=== PATIENT | female | born 1950 | race Two or more races ===

== ENCOUNTER 2019-10-24 15:04 | Emergency (ER) | payer MEDICARE, OTHER ==
[~2019-10-24] VITALS: Ht 167.6 cm; Wt 104.3 kg
--- NOTE | 2019-10-24 15:19 | NUR ---
DR HART AT BEDSIDE FOR EVAL.
--- NOTE | 2019-10-24 15:23 | NUR ---
[employer] AT BED SIDE, OFFICER MANJU LINDQUIST #[id number]
[2019-10-24] MEDS ORDERED: HYDROCODONE/APAP 5/325MG 1 EACH TABLET ONE (15:24)
[2019-10-24] MEDS ORDERED: HYDROCODONE/APAP 5/325MG 1 EACH TABLET PO ONE (15:30)
[2019-10-24 16:24] VITALS: BP 162/101
--- NOTE | 2019-10-24 16:24 | NUR ---
Patient discharged to home in stable condition. Written and verbal after care instructions given. Patient verbalizes understanding of instruction.
== END 2019-10-24 16:24 | disposition home or self-care (01) ==
LOC: ER 15:11
DX: S69.82XA Other specified injuries of left wrist, hand and finger(s), initial encounter (principal); I10 Essential (primary) hypertension; Y08.89XA Assault by other specified means, initial encounter; Y93.89 Activity, other specified; Y92.89 Other specified places as the place of occurrence of the external cause; Y99.8 Other external cause status